=== PATIENT | female | born 1955 | race African-American/Black ===

== ENCOUNTER 2024-07-09 09:18 | Outpatient (CLI) | payer OTHER, MEDICAID | END 2024-07-09 09:19 | disposition home or self-care (01) | LOC: CSHWCC 09:18 | PROVIDERS: ATTEND Nurse Practitioner Family | DX: E11.621 Type 2 diabetes mellitus with foot ulcer (principal); L97.412 Non-pressure chronic ulcer of right heel and midfoot with fat layer exposed; M06.9 Rheumatoid arthritis, unspecified | CPT/HCPCS: 99213; G0463 ==

== ENCOUNTER 2025-06-25 12:32 | Outpatient (CLI) | payer OTHER, MEDICAID | END 2025-06-25 12:33 | disposition home or self-care (01) | LOC: CSHMAMMO 12:32 | PROVIDERS: ATTEND Nurse Practitioner Family | DX: Z12.31 Encounter for screening mammogram for malignant neoplasm of breast (principal) | CPT/HCPCS: 77063; 77067 ==